=== PATIENT | female | born 1985 | race Caucasian/White ===

== ENCOUNTER 2019-05-14 18:38 | Emergency (ER) | payer OTHER ==
[~2019-05-14] VITALS: Ht 157.5 cm; Wt 63.5 kg
[2019-05-14] MEDS ORDERED: HYDROCODONE/APAP 5-325MG TABLET PO ONE (19:15)
[2019-05-14] MEDS ORDERED: HYDROCODONE/APAP 5-325MG TABLET ONE (19:19)
--- NOTE | 2019-05-14 20:01 | NUR ---
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
--- NOTE | 2019-05-14 20:18 | NUR ---
Patient discharged to home in stable conditon. Written and verbal after care instructions given. Patient verbalizes understanding of instructions. Pt ambulate out of ER with steady gait, no acute signs of distress, VSS, all belongings taken.
[2019-05-14 20:25] VITALS: BP 125/72
== END 2019-05-14 20:25 | disposition home or self-care (01) ==
LOC: ER 18:42
DX: S93.601A Unspecified sprain of right foot, initial encounter (principal); Z88.0 Allergy status to penicillin; Z88.8 Allergy status to other drugs, medicaments and biological substances; W01.0XXA Fall on same level from slipping, tripping and stumbling without subsequent striking against object, initial encounter; Y93.89 Activity, other specified; Y92.89 Other specified places as the place of occurrence of the external cause; Y99.8 Other external cause status
CPT/HCPCS: 73630; A4663

== ENCOUNTER 2020-07-17 16:48 | Emergency (ER) | payer OTHER ==
[~2020-07-17] VITALS: Ht 157.5 cm; Wt 63.5 kg
[2020-07-17] MEDS ORDERED: HYDROCODONE/APAP 5-325MG TABLET ONE (17:43)
[2020-07-17] MEDS ORDERED: IBUPROFEN 800 MG TABLET ONE (17:44)
[2020-07-17] MEDS ORDERED: IBUPROFEN 800 MG TABLET PO ONE (17:45)
[2020-07-17] MEDS ORDERED: HYDROCODONE/APAP 5-325MG TABLET PO ONE (17:45)
--- NOTE | 2020-07-17 17:50 | NUR ---
Patient discharged to home in stable condition. Written and verbal after care instructions given. Patient verbalizes understanding of instructions. Stressed follow up or return to ER for worsening s/s. pt walks in steady gait. pt will pick up man the pt. pt not driving
== END 2020-07-17 17:53 | disposition home or self-care (01) ==
LOC: ER 16:49
DX: M54.5 Low back pain (principal); Z88.0 Allergy status to penicillin
CPT/HCPCS: A4663

== ENCOUNTER 2020-09-29 15:29 | Emergency (ER) | payer OTHER ==
[~2020-09-29] VITALS: Ht 157.5 cm; Wt 63.5 kg
[2020-09-29 16:05] LABS: *BILIRUBIN,URIN NEGATIVE (NEGATIVE); *BLOOD, URINE NEGATIVE (NEGATIVE); *CLARITY,URINE CLEAR (CLEAR); *COLOR,URINE LIGHT YELLOW (YELLOW); *KETONES,URINE NEGATIVE (NEGATIVE); *UROBILINOGEN,URINE 0.2 E.U./dl (NORMAL); LEUKOCYTE ESTERASE ,URINE 1+ (NEGATIVE); NITRITE, URINE NEGATIVE (NEGATIVE); PH,URINE 7.5 (5.0-8.0); UGLUCOSE NEGATIVE (NEGATIVE)
[2020-09-29 16:08] LABS: *URINE HCG, QUAL NEGATIVE (NEGATIVE)
[2020-09-29 16:16] LABS: *AMPHETAMINE, URINE NEGATIVE (NEGATIVE); *CANNABINOID, URINE NEGATIVE (NEGATIVE); *COCCAINE, URINE NEGATIVE (NEGATIVE); *OPIATE, URINE POSITIVE (NEGATIVE); *PHENCYCLIDINE SCREEN,URINE NEGATIVE (NEGATIVE); RBC,URINE 0-3 /HPF (0-3)
[2020-09-29] MEDS: KETOROLAC TROMETHAMINE 30 MG INJ IM ONE (16:16)
[2020-09-29 16:17] LABS: BACTERIA,URINE NONE SEEN /HPF (NONE SEEN); SQUAMOUS EPITHELIAL CELL,UR FEW /HPF (NONE SEEN)
[2020-09-29] MEDS: SULFAMETH/TRIMETH 800/160 MG TABLET PO ONE (16:17)
[2020-09-29] MEDS: HYDROCODONE/APAP 5-325MG TABLET PO ONE (16:21)
[2020-09-29] MEDS ORDERED: HYDR-3972 PO (16:21)
[2020-09-29] MEDS ORDERED: IBUP-1955 PO (16:21)
[2020-09-29] MEDS ORDERED: SULF1TAB48 PO (16:21)
[2020-09-29] MEDS ORDERED: HYDROCODONE/APAP 5-325MG TABLET ONE (16:24)
[2020-09-29] MEDS ORDERED: SULFAMETH/TRIMETH 800/160 MG TABLET ONE (16:24)
--- NOTE | 2020-09-29 17:12 | NUR ---
PT WAS EVALUATED BY DR GOLDBERG. PT WAS D/C'd TO HOME. D/C INSTRUCTIONS GIVEN TO THE PT BY DR GOLDBERG.
[2020-09-29 17:14] VITALS: BP 122/73
== END 2020-09-29 17:15 | disposition home or self-care (01) ==
LOC: ER 15:31
DX: N12 Tubulo-interstitial nephritis, not specified as acute or chronic (principal); Z87.440 Personal history of urinary (tract) infections; Z88.0 Allergy status to penicillin; Z88.8 Allergy status to other drugs, medicaments and biological substances
CPT/HCPCS: 84703; 87086; A4663

== ENCOUNTER 2020-10-26 15:22 | Emergency (ER) | payer OTHER ==
[~2020-10-26] VITALS: Ht 157.5 cm; Wt 63.5 kg
[~2020-10-26 15:22] MED LIST: HYDR-3972 PO; IBUP-1955 PO; SULF1TAB48 PO
[2020-10-26] MEDS ORDERED: CARI350T PO (15:37)
[2020-10-26] MEDS ORDERED: HYDR-4209 PO (15:37)
[2020-10-26] MEDS ORDERED: IBUP800T54 PO (15:37)
[2020-10-26] MEDS ORDERED: IBUPROFEN 800 MG TABLET PO ONE (15:45)
[2020-10-26] MEDS ORDERED: HYDROCODONE/APAP 5-325MG TABLET PO ONE ×2 (15:45→16:00)
[2020-10-26] MEDS ORDERED: HYDROCODONE/APAP 5-325MG TABLET ONE ×2 (15:48→15:55)
== END 2020-10-26 15:52 | disposition home or self-care (01) ==
LOC: ER 15:22
DX: M54.5 Low back pain (principal); Z88.0 Allergy status to penicillin; Z88.8 Allergy status to other drugs, medicaments and biological substances; Z87.440 Personal history of urinary (tract) infections
CPT/HCPCS: A4663

== ENCOUNTER 2020-12-03 10:03 | Emergency (ER) | payer OTHER ==
[~2020-12-03] VITALS: Ht 160 cm; Wt 63.5 kg
[~2020-12-03 10:03] MED LIST changes: +CARI350T PO; +HYDR-4209 PO; +IBUP800T54 PO
--- NOTE | 2020-12-03 10:30 | NUR ---
at bedside for MSE at this time
--- NOTE | 2020-12-03 10:35 | NUR ---
Provided pain medication as ordered and ice pack for affected area
[2020-12-03] MEDS ORDERED: HYDROCODONE/APAP 5-325MG TABLET PO ONE ×2 (10:45→11:15)
[2020-12-03] MEDS ORDERED: HYDROCODONE/APAP 5-325MG TABLET ONE ×2 (10:47→11:12)
[2020-12-03] MEDS ORDERED: HYDR-3980 PO (11:15)
--- NOTE | 2020-12-03 11:25 | NUR ---
Patient discharged to home in stable condition, assisted via wheelchair to awaiting private transport. Written and verbal after care instructions given. Patient verbalizes understanding of instructions. Stressed follow up or return to ER for worsening s/s.
[2020-12-03 11:26] VITALS: BP 139/71
== END 2020-12-03 11:28 | disposition home or self-care (01) ==
LOC: ER 10:03
DX: S62.634A Displaced fracture of distal phalanx of right ring finger, initial encounter for closed fracture (principal); S93.601A Unspecified sprain of right foot, initial encounter; W01.0XXA Fall on same level from slipping, tripping and stumbling without subsequent striking against object, initial encounter; Y92.89 Other specified places as the place of occurrence of the external cause; M54.9 Dorsalgia, unspecified; Z88.0 Allergy status to penicillin
CPT/HCPCS: 73130; 73630; A4663

== ENCOUNTER 2021-03-25 10:50 | Emergency (ER) | payer OTHER ==
[~2021-03-25] VITALS: Ht 157.5 cm; Wt 63.5 kg
[~2021-03-25 10:50] MED LIST changes: +HYDR-3980 PO
[2021-03-25] MEDS ORDERED: KETOROLAC TROMETHAMINE 15 MG INJ IM ONE (11:15)
[2021-03-25] MEDS ORDERED: CYCLOBENZAPRINE HCL 10 MG TABLET PO ONE (11:15)
--- NOTE | 2021-03-25 11:15 | NUR ---
PT REFUSED THE ORDERED MED, REQUESTING ONLY [place] 10.
[2021-03-25] MEDS ORDERED: IBUP-1955 PO (11:17)
--- NOTE | 2021-03-25 11:22 | NUR ---
PT LEONIE, WALKED IN STEDAY GAIT.
[2021-03-25] MEDS ORDERED: CYCLOBENZAPRINE HCL 10 MG TABLET ONE (11:25)
[2021-03-25] MEDS ORDERED: KETOROLAC TROMETHAMINE 15 MG INJ ONE (11:26)
== END 2021-03-25 11:23 | disposition left against medical advice (07) ==
LOC: ER 10:50
DX: M54.50 Low back pain, unspecified (principal); G89.29 Other chronic pain; Z88.0 Allergy status to penicillin; Z88.8 Allergy status to other drugs, medicaments and biological substances
CPT/HCPCS: A4663; J1885

== ENCOUNTER 2022-05-21 20:51 | Emergency (ER) | payer OTHER ==
--- NOTE | 2022-05-21 21:30 | NUR ---
Patient was called to be triaged but was not present in the waiting room or outside of ER.
--- NOTE | 2022-05-21 22:30 | NUR ---
Patient was called to be triaged but was not present. PATIENT WAS NOT TRIAGED OR SEEN BY ERMD.
== END 2022-05-21 22:30 | disposition left against medical advice (07) ==
LOC: ER 20:54
DX: Z53.21 Procedure and treatment not carried out due to patient leaving prior to being seen by health care provider (principal)

== ENCOUNTER 2022-05-29 13:44 | Emergency (ER) | payer OTHER ==
[~2022-05-29] VITALS: Ht 157.5 cm; Wt 70.3 kg
--- NOTE | 2022-05-29 14:30 | NUR ---
Pt refused blood draw by lab.
[2022-05-29 16:26] LABS: *BILIRUBIN,URIN NEGATIVE (NEGATIVE); *BLOOD, URINE 1+ (NEGATIVE); *CLARITY,URINE CLEAR (CLEAR); *COLOR,URINE YELLOW (YELLOW); *KETONES,URINE NEGATIVE (NEGATIVE); *UROBILINOGEN,URINE 0.2 E.U./dl (NORMAL); LEUKOCYTE ESTERASE ,URINE 3+ (NEGATIVE); NITRITE, URINE POSITIVE (NEGATIVE); UGLUCOSE NEGATIVE (NEGATIVE)
[2022-05-29] MEDS ORDERED: IV NORMAL SALINE 1000 ML BAG IV ONE (16:30)
[2022-05-29] MEDS ORDERED: MORPHINE SULFATE 4 MG/1 ML DISP.SYRIN IV ONE ×2 (16:30→18:45)
[2022-05-29] MEDS ORDERED: ONDANSETRON 4 MG/2 ML VIAL IV ONE (16:30)
[2022-05-29] MEDS ORDERED: ONDANSETRON 4 MG/2 ML VIAL ONE (16:35)
[2022-05-29] MEDS ORDERED: MORPHINE SULFATE 4 MG/1 ML DISP.SYRIN ONE ×2 (16:35→18:37)
[2022-05-29 16:41] LABS: HEMATOCRIT 37.5 % (31.2-41.9); MEAN CORPUSCULAR HEMOGLOBIN 30.5 uug (24.7-32.8); MEAN CORPUSCULAR VOLUME 89.9 fL (75.5-95.3); PLATELET COUNT (AUTO) 270 K/uL (179-408)
[2022-05-29] MEDS ORDERED: CEFTRIAXONE 1 G in IV DEXTROSE 5% 50 ML IV ONE (16:45)
[2022-05-29 17:04] LABS: ALANINE AMINOTRANSFERASE 37 U/L (14-59); ALKALINE PHOSPHATASE 90 U/L (50-136); ASPARTATE AMINOTRANSFERASE 13 U/L (15-37); BILIRUBIN,DIRECT 0.1 mg/dL (0.0-0.2); BILIRUBIN,TOTAL 0.3 mg/dL (0.2-1.0); CARBON DIOXIDE 29 mmol/L (21-32); CHLORIDE 106 mmol/L (98-107); CREATININE 0.7 mg/dL (0.6-1.3); GLUCOSE 84 mg/dL (74-106); LIPASE 200 U/L (73-393); POTASSIUM 4.2 mmol/L (3.5-5.1); TOTAL PROTEIN, SERUM 7.8 g/dL (6.4-8.2); UREA NITROGEN, BLOOD 10 mg/dL (7-18)
[2022-05-29] MEDS ORDERED: CEFTRIAXONE /D5W 50ML IVPB **ER PYXIS IV ONE (17:06)
[2022-05-29 18:32] LABS: BACTERIA,URINE MANY /HPF (NONE SEEN); SQUAMOUS EPITHELIAL CELL,UR FEW /HPF (NONE SEEN); WBC,URINE TNTC /HPF (0-3)
--- NOTE | 2022-05-29 18:33 | NUR ---
Dr Salinas spoke to Irene (urolopgist) for consult.
[2022-05-29] MEDS ORDERED: ESCI20TA PO (18:35)
[2022-05-29] MEDS ORDERED: FAMOTIDINE. 20 MG/2 ML VIAL IV ONE ×2 (18:45→19:00)
[2022-05-29] MEDS ORDERED: HYDR-3974 PO (19:31)
--- NOTE | 2022-05-29 19:35 | NUR ---
IV removed. Catheter intact and site benign. Pressure and 4x4 gauze applied to site. No bleeding noted.
[2022-05-29 19:40] VITALS: BP 119/70
--- NOTE | 2022-05-29 19:40 | NUR ---
Patient discharged to home in stable condition. Written and verbal after care instructions given. Patient verbalizes understanding of instructions. Stressed follow up or return to ER for worsening s/s.
[2022-05-29] MEDS ORDERED: HYDROCODONE/APAP 5-325MG TABLET PO ONE (19:45)
[2022-05-29] MEDS ORDERED: HYDROCODONE/APAP 5-325MG TABLET ONE (19:46)
--- NOTE | 2022-05-29 19:47 | NUR ---
[place] 5/325 mg given to Pt per Dr Salinas order.
== END 2022-05-29 19:41 | disposition home or self-care (01) ==
LOC: ER 13:44
DX: N13.6 Pyonephrosis (principal); Z88.0 Allergy status to penicillin; Z87.440 Personal history of urinary (tract) infections; F32.A Depression, unspecified; Z79.899 Other long term (current) drug therapy
CPT/HCPCS: 99284; 74176; 96365; 96375; 80076; 80048; 81001; 83690; 85025; 84702; 36415; 96376; 87040; J0696; J3490; J2405; J2270 ×2; J7040

== ENCOUNTER 2022-06-08 21:25 | Emergency (ER) | END 2022-06-08 23:45 | disposition home or self-care (01) | DX: N20.1 Calculus of ureter (principal); N39.0 Urinary tract infection, site not specified; Z88.0 Allergy status to penicillin; F32.A Depression, unspecified; Z79.899 Other long term (current) drug therapy | CPT/HCPCS: 99284; 96374; 96361; 96375; 80048; 81001; 84703; 85025; 87040; 36415; 74018; J0780; J1170; J7040 ==

== ENCOUNTER 2022-07-29 12:05 | Emergency (ER) | payer OTHER ==
[~2022-07-29] VITALS: Ht 157.5 cm; Wt 70.3 kg
[~2022-07-29 12:05] MED LIST changes: +CEPH500C2 PO; +ESCI20TA PO; +HYDR-3974 PO; -HYDR-3980 PO; -HYDR-4209 PO; -IBUP-1955 PO; -IBUP800T54 PO; +ONDA4TAB5 GT; +OXYC1TAB12 PO; -SULF1TAB48 PO
[2022-07-29 13:25] LABS: HEMATOCRIT 36.5 % (31.2-41.9); MEAN CORPUSCULAR HEMOGLOBIN 29.9 uug (24.7-32.8); MEAN CORPUSCULAR VOLUME 89.8 fL (75.5-95.3); PLATELET COUNT (AUTO) 215 K/uL (179-408)
[2022-07-29] MEDS ORDERED: ONDANSETRON 4 MG/2 ML VIAL ONE ×2 (13:36→14:43)
[2022-07-29] MEDS ORDERED: MORPHINE SULFATE 4 MG/1 ML DISP.SYRIN ONE (13:36)
[2022-07-29 13:37] LABS: CREATININE 0.6 mg/dL (0.6-1.3); POTASSIUM 4.4 mmol/L (3.5-5.1)
[2022-07-29] MEDS ORDERED: ONDANSETRON 4 MG/2 ML VIAL IV ONE ×2 (13:45→14:45)
[2022-07-29] MEDS ORDERED: IV NORMAL SALINE 1000 ML BAG IV ONE ×2 (13:45→14:45)
[2022-07-29] MEDS ORDERED: MORPHINE SULFATE 4 MG/1 ML DISP.SYRIN IV ONE (13:45)
[2022-07-29 13:55] LABS: BILIRUBIN,DIRECT 0.1 mg/dL (0.0-0.2); BILIRUBIN,TOTAL 0.4 mg/dL (0.2-1.0); TOTAL PROTEIN, SERUM 7.2 g/dL (6.4-8.2)
[2022-07-29 14:09] LABS: *BILIRUBIN,URIN NEGATIVE (NEGATIVE); *BLOOD, URINE 3+ (NEGATIVE); *CLARITY,URINE CLEAR (CLEAR); *COLOR,URINE YELLOW (YELLOW); *KETONES,URINE NEGATIVE (NEGATIVE); *UROBILINOGEN,URINE 0.2 E.U./dl (NORMAL); LEUKOCYTE ESTERASE ,URINE 1+ (NEGATIVE); NITRITE, URINE NEGATIVE (NEGATIVE); PH,URINE 6.5 (5.0-8.0); UGLUCOSE NEGATIVE (NEGATIVE)
[2022-07-29 14:10] LABS: *URINE HCG, QUAL NEG (NEGATIVE)
[2022-07-29] MEDS ORDERED: VANCOMYCIN IV 200 ML ONE (14:12)
[2022-07-29] MEDS ORDERED: HYDROMORPHONE 1 MG/1 ML DISP.SYRIN ONE (14:44)
[2022-07-29] MEDS ORDERED: HYDROMORPHONE 1 MG/1 ML DISP.SYRIN IV ONE (14:45)
[2022-07-29] MEDS ORDERED: CEPH500T PO ×2 (15:51→17:08)
[2022-07-29] MEDS ORDERED: ONDA4TAB5 PO ×2 (15:51→17:08)
[2022-07-29] MEDS ORDERED: HYDR-3974 PO ×2 (15:51→17:08)
[2022-07-29] MEDS ORDERED: CEFTRIAXONE /D5W 50ML IVPB **ER PYXIS IV ONE (15:55)
[2022-07-29] MEDS ORDERED: HYDROCODONE/APAP 5-325MG TABLET ONE (15:55)
[2022-07-29] MEDS ORDERED: CEFTRIAXONE 1 G in IV DEXTROSE 5% 50 ML IV ONE (16:00)
[2022-07-29] MEDS ORDERED: HYDROCODONE/APAP 5-325MG TABLET PO ONE (16:00)
--- NOTE | 2022-07-29 16:50 | NUR ---
Patient discharged to home in stable condition. Written and verbal after care instructions given. Patient verbalizes understanding of instructions. IV removed. Stressed follow up or return to ER for worsening s/s.
[2022-07-29 17:27] VITALS: BP 112/80
[2022-07-29 23:08] LABS: BACTERIA,URINE MODERATE /HPF (NONE SEEN); RBC,URINE 20-50 /HPF (0-3); SQUAMOUS EPITHELIAL CELL,UR MODERATE /HPF (NONE SEEN); TRIPLE PHOSPHATE CRYSTAL,UR FEW /HPF (NONE SEEN)
== END 2022-07-29 16:50 | disposition home or self-care (01) ==
LOC: ER 12:05
DX: N13.6 Pyonephrosis (principal); R10.9 Unspecified abdominal pain; Z93.6 Other artificial openings of urinary tract status; Z88.6 Allergy status to analgesic agent; Z88.0 Allergy status to penicillin; Z87.442 Personal history of urinary calculi
CPT/HCPCS: 99285; 74176; 96365; 96375; 96361; 80076; 80048; 81001; 84703; 83690; 85025; 36415; 96376; J0696; J2405 ×2; J3370; J1170; J2270; J7040 ×2; A4663

== ENCOUNTER 2023-01-21 18:54 | Emergency (ER) | payer BC, OTHER ==
[~2023-01-21] VITALS: Ht 157.5 cm; Wt 70.3 kg
[~2023-01-21 18:54] MED LIST changes: -CARI350T PO; -CEPH500C2 PO; +CEPH500T PO; -ONDA4TAB5 GT; +ONDA4TAB5 PO; -OXYC1TAB12 PO
[2023-01-21] MEDS ORDERED: IBUPROFEN 600 MG TABLET ONE (19:39)
[2023-01-21] MEDS: IV NORMAL SALINE 1000 ML BAG IV ONE (19:42)
[2023-01-21] MEDS: IBUPROFEN 600 MG TABLET PO ONE (19:42)
[2023-01-21 19:43] LABS: BASOPHILS % (AUTO) 0.3 % (0.0-2.0); EOSINOPHILS # (AUTO) 0.1 K/uL (0.0-0.7); EOSINOPHILS % (AUTO) 0.7 % (0.0-7.0); HEMATOCRIT 38.7 % (31.2-41.9); HEMOGLOBIN 12.8 g/dL (10.9-14.3); LYMPHOCYTES # (AUTO) 3.3 K/uL (0.8-4.8); LYMPHOCYTES % (AUTO) 43.4 % (20.5-51.5); MEAN CORPUSCULAR HEMOGLOBIN 29.6 uug (24.7-32.8); MEAN CORPUSCULAR HGB CONC 33 g/dL (32.3-35.6); MEAN CORPUSCULAR VOLUME 89.7 fL (75.5-95.3); MONOCYTES # (AUTO) 0.5 K/uL (0.1-1.30); MONOCYTES % (AUTO) 6.5 % (0.0-11.0); NEUTROPHILS # (AUTO) 3.7 K/uL (1.8-8.9); NEUTROPHILS % (AUTO) 49.1 % (38.5-71.5); PLATELET COUNT (AUTO) 204 K/uL (179-408); RED BLOOD CELL COUNT(AUTO) 4.31 MIL/uL (3.63-4.92); RED CELL DISTRIBUTION WIDTH 13.5 % (12.3-17.7); WHITE BLOOD COUNT (AUTO) 7.6 K/uL (3.8-11.8)
[2023-01-21] MEDS ORDERED: LORAZEPAM 2 MG/1 ML VIAL ONE (19:50)
[2023-01-21 19:51] LABS: DIFFERENTIAL COMMENT 1
[2023-01-21 19:54] LABS: CALCIUM 9.2 mg/dL (8.5-10.1); CARBON DIOXIDE 27 mmol/L (21-32); CHLORIDE 104 mmol/L (98-107); CREATININE 0.8 mg/dL (0.6-1.3); GLUCOSE 100 mg/dL (74-106); SODIUM SERUM 140 mmol/L (136-145); UREA NITROGEN, BLOOD 7 mg/dL (7-18)
[2023-01-21] MEDS: LORAZEPAM 0.5 MG TABLET PO ONE (19:58)
[2023-01-21 20:02] LABS: ALANINE AMINOTRANSFERASE 86 U/L (14-59); ALBUMIN 4.1 g/dL (3.4-5.0); ALKALINE PHOSPHATASE 87 U/L (50-136); ASPARTATE AMINOTRANSFERASE 25 U/L (15-37); BILIRUBIN,DIRECT 0.2 mg/dL (0.0-0.2); BILIRUBIN,TOTAL 0.6 mg/dL (0.2-1.0); LIPASE 127 U/L (73-393); TOTAL PROTEIN, SERUM 7.9 g/dL (6.4-8.2)
[2023-01-21 20:31] LABS: *BILIRUBIN,URIN NEGATIVE (NEGATIVE); *BLOOD, URINE 3+ (NEGATIVE); *COLOR,URINE YELLOW (YELLOW); *KETONES,URINE NEGATIVE (NEGATIVE); *PROTEIN,URINE 1+ (NEGATIVE); LEUKOCYTE ESTERASE ,URINE 2+ (NEGATIVE); NITRITE, URINE POSITIVE (NEGATIVE); PH,URINE 8.5 (5.0-8.0); UGLUCOSE NEGATIVE (NEGATIVE)
[2023-01-21 20:35] LABS: *CLARITY,URINE CLOUDY (CLEAR)
[2023-01-21 20:39] LABS: *URINE HCG, QUAL NEGATIVE (NEGATIVE)
[2023-01-21] MEDS ORDERED: HYDROCODONE/APAP 5-325MG TABLET PO ONE (20:45)
[2023-01-21 21:08] LABS: BACTERIA,URINE MANY /HPF (NONE SEEN); RBC,URINE 20-50 /HPF (0-3); SQUAMOUS EPITHELIAL CELL,UR FEW /HPF (NONE SEEN); URINE AMORPHOUS PHOSPHATES MANY /HPF; WBC,URINE 50-80 /HPF (0-3)
[2023-01-21] MEDS ORDERED: ESCI20TA PO (22:49)
[2023-01-21] MEDS ORDERED: BUPR300T52 PO (22:49)
[2023-01-21] MEDS ORDERED: MORPHINE SULFATE 2 MG/1 ML DISP.SYRIN ONE (23:03)
[2023-01-21] MEDS: MORPHINE SULFATE 2 MG/1 ML DISP.SYRIN IV ONE (23:05)
[2023-01-21 23:32] VITALS: BP 140/77; O2SAT 97
== END 2023-01-21 23:33 | disposition left against medical advice (07) ==
LOC: ER 18:56
DX: K80.00 Calculus of gallbladder with acute cholecystitis without obstruction (principal); Z88.0 Allergy status to penicillin; Z88.8 Allergy status to other drugs, medicaments and biological substances; Z79.899 Other long term (current) drug therapy
CPT/HCPCS: 99285; 74176; 96374; 76705; 80076; 80048; 81001; 84703; 83690; 85025; 84484; 36415; 87040; J2060; J2270; J7040; A4663